=== PATIENT | female | born 2005 | race Caucasian/White ===

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

== ENCOUNTER 2025-05-29 08:41 | Outpatient (CLI) | payer OTHER, SELFPAY ==
[2025-05-29 11:52] LABS: Bacterial Vaginosis* Negative (Negative); Candida glab/krus NOT DETECTED (No Detected)
[2025-06-01 08:38] LABS: Pap Test Digital Imaging Done
== END 2025-05-29 08:42 | disposition home or self-care (01) ==
PROVIDERS: PCP Emergency Medicine; Visit Provider Obstetrics & Gynecology
DX: R63.4 Abnormal weight loss (principal); R10.2 Pelvic and perineal pain; Z12.4 Encounter for screening for malignant neoplasm of cervix
CPT/HCPCS: 81513; 84443; 87086; 87481; 87624; 87625; 87661; 88141; 88142; 88175